=== PATIENT | female | born 1970 | race Caucasian/White ===

== ENCOUNTER 2023-08-04 12:44 | Inpatient (IN) | payer OTHER ==
[2023-08-04 13:48] VITALS: BMI 37.8
[2023-08-04] MEDS ORDERED: NICOTINE POLACRILEX 2 MG GUM BUC PRN (15:25)
[2023-08-04] MEDS ORDERED: MAGNESIUM HYDROX 2400MG/30ML ORAL SUSPENSION 30 ML CUP PO PRN (15:25)
[2023-08-04] MEDS ORDERED: IBUPROFEN 400 MG TABLET (FP) PO PRN (15:25)
[2023-08-04] MEDS ORDERED: NICOTINE POLACRILEX 2 MG LOZENGE BC PRN (15:25)
[2023-08-04] MEDS ORDERED: P-EPHED 60MG/TRIPROLIDI 2.5MG TABLET PO PRN (15:25)
[2023-08-04] MEDS ORDERED: BENZONATATE 200 MG CAPSULE PO PRN (15:25)
[2023-08-04] MEDS ORDERED: LOPERAMIDE HCL 2 MG CAPSULE PO PRN (15:25)
[2023-08-04] MEDS ORDERED: POLYETHYLENE GLYCOL (HEALTHYLAX) 3350 17 GM PACKET PO PRN (15:25)
[2023-08-04] MEDS ORDERED: BENZOCAINE/MENTHOL (CHLORASEPTIC ) LOZENGE MM PRN (15:25)
[2023-08-04] MEDS ORDERED: BISMUTH SUBSALICYLATE 262 MG/15 ML BTL PO PRN (15:25)
[2023-08-04] MEDS ORDERED: guaiFENesin 600 MG TABLET.ER (FP) PO PRN (15:25)
[2023-08-04] MEDS ORDERED: DICYCLOMINE HCL 10 MG CAPSULE PO PRN (15:25)
[2023-08-04] MEDS ORDERED: chlordiazePOXIDE HCL 25 MG CAPSULE ONE ×2 (15:56→17:15)
[2023-08-04] MEDS: chlordiazePOXIDE HCL 25 MG CAPSULE PO PRN (15:58)
[2023-08-04] MEDS: hydrOXYzine PAMOATE 25 MG CAPSULE (FP) PO PRN (16:00)
[2023-08-04] MEDS ORDERED: hydrOXYzine PAMOATE 25 MG CAPSULE (FP) PO ONE (16:00)
[2023-08-04] MEDS ORDERED: ASPIRIN 81 MG CHEWABLE TABLETS ONE (17:15)
[2023-08-04] MEDS: chlordiazePOXIDE HCL 25 MG CAPSULE PO SCH (17:18)
[2023-08-04] MEDS: ASPIRIN COATED 81 MG TABLET.EC PO SCH (17:22)
[2023-08-04] MEDS: METOPROLOL TARTRATE 25 MG TABLET (FP) PO ONE (19:04)
[2023-08-04] MEDS: ACETAMINOPHEN 325 MG TABLET (FP) PO PRN (19:35)
[2023-08-04] MEDS: ONDANSETRON *ODT* 4 MG TABLET SL PRN (20:37)
[2023-08-04] MEDS: MELATONIN 5 MG TABLETS PO SCH (22:12)
[2023-08-04] MEDS: THIAMINE 100 MG TABLET PO SCH (22:12)
[2023-08-04] MEDS: ATORVASTATIN CA 40 MG TABLET (FP) PO SCH (22:12)
[2023-08-04] MEDS: IBUPROFEN 600 MG TABLET (FP) PO PRN (22:14)
[2023-08-04] MEDS: amLODIPine BESYLATE 10 MG TABLET (FP) PO ONE (23:32)
[2023-08-05] MEDS: cloNIDine HCL 0.1 MG TABLET PO ONE (04:00)
[2023-08-05] MEDS: METHOCARBAMOL 500 MG TABLET PO PRN (05:27)
[2023-08-05] MEDS: ASPIRIN 81 MG CHEWABLE TABLETS PO SCH (10:15)
[2023-08-05] MEDS: METOPROLOL TARTRATE 50 MG TABLET (FP) PO SCH (10:15)
[2023-08-05] MEDS: HYDROCHLOROTHIAZIDE 25 MG TABLET (FP) PO SCH (10:15)
[2023-08-05] MEDS: FAMOTIDINE 20 MG TABLET PO SCH (10:15)
[2023-08-05] MEDS: LORazepam 2 MG TABLET PO SCH (10:15)
[2023-08-05] MEDS: PRENATAL VITAMINS W/ FOLIC ACID TABLET (FP) PO SCH (10:15)
[2023-08-05] MEDS: amLODIPine BESYLATE 10 MG TABLET (FP) PO SCH (10:15)
[2023-08-05] MEDS: NICOTINE 14 MG/24 HOURS TOPICAL PATCH TD SCH (10:18)
[2023-08-05] MEDS: LORazepam 1 MG TABLET PO PRN (14:39)
[2023-08-05] MEDS: SERTRALINE HCL 50 MG TABLET (FP) PO SCH (22:25)
[2023-08-05] MEDS: SUVOREXANT 10 MG TABLET PO PRN (22:29)
[2023-08-06] MEDS ORDERED: chlordiazePOXIDE HCL 25 MG CAPSULE PO SCH (05:00)
[2023-08-06] MEDS: MAG HYDROX/AL HYDROX/SIMETH 30 ML UNIT-DOSE CUP PO PRN (08:45)
[2023-08-07] MEDS ORDERED: chlordiazePOXIDE HCL 10 MG CAPSULE PO PRN
[2023-08-07] MEDS ORDERED: chlordiazePOXIDE HCL 10 MG CAPSULE PO SCH (05:00)
[2023-08-07] MEDS: LORazepam 1 MG TABLET PO SCH (05:06)
[2023-08-08] MEDS ORDERED: chlordiazePOXIDE HCL 10 MG CAPSULE PO SCH (05:00)
[2023-08-08 05:16] VITALS: RESP 18
[2023-08-08] MEDS: LORazepam 0.5 MG TABLET PO SCH (05:41)
[2023-08-08 09:41] VITALS: BP 141/101; PULSE 103; TEMP 98
[2023-08-09] MEDS ORDERED: LORazepam 0.5 MG TABLET PO ONE (05:00)
[2023-08-09] MEDS ORDERED: chlordiazePOXIDE HCL 10 MG CAPSULE PO ONE (05:00)
== END 2023-08-08 11:10 | disposition home or self-care (01) | DRG 775 ==
LOC: YASAS 12:44 → Y6N 16:58
PROVIDERS: ADMIT Allergy & Immunology; ATTEND Surgery
PROC: HZ2ZZZZ Detoxification Services for Substance Abuse Treatment (ICD-10-PCS; principal; 2023-08-04)
DX: F10.230 Alcohol dependence with withdrawal, uncomplicated (principal); F17.210 Nicotine dependence, cigarettes, uncomplicated; F33.1 Major depressive disorder, recurrent, moderate; F10.280 Alcohol dependence with alcohol-induced anxiety disorder; F10.282 Alcohol dependence with alcohol-induced sleep disorder; F10.24 Alcohol dependence with alcohol-induced mood disorder; E78.5 Hyperlipidemia, unspecified; I25.10 Atherosclerotic heart disease of native coronary artery without angina pectoris; I10 Essential (primary) hypertension; I25.2 Old myocardial infarction; Z95.1 Presence of aortocoronary bypass graft; Z62.810 Personal history of physical and sexual abuse in childhood; Z63.8 Other specified problems related to primary support group; Z88.0 Allergy status to penicillin
CPT/HCPCS: 80305; 81025; Q0162